=== PATIENT | male | born 1975 | race Caucasian/White ===

== ENCOUNTER 2017-06-03 02:13 | Inpatient (IN) | payer OTHER ==
[~2017-06-03] VITALS: Ht 177.8 cm; Wt 144.5 kg
[2017-06-03] MEDS ORDERED: TEST100V INJ (02:24)
[2017-06-03] MEDS ORDERED: ALBU0.63 NEB (02:24)
[2017-06-03 03:03] LABS: BASOPHILS # (AUTO) 0.02 x10^3/uL (0-0.1); BASOPHILS % (AUTO) 0 % (0-1); EOSINOPHILS # (AUTO) 0.16 x10^3/uL (0-0.4); EOSINOPHILS % (AUTO) 2 % (1-7); LYMPHOCYTES # (AUTO) 2.49 x10^3/uL (1-3.4); LYMPHOCYTES % (AUTO) 34 % (22-44); MD NO; MEAN CORPUSCULAR HEMOGLOBIN 30.8 pg (27.5-34.5); MEAN CORPUSCULAR HGB CONC 34.1 g/dL (33.2-36.2); MEAN CORPUSCULAR VOLUME 90.2 fL (81-97); MEAN PLATELET VOLUME 9.2 fL (7.4-10.4); MONOCYTES # (AUTO) 0.46 x10^3/uL (0.2-0.8); MONOCYTES % (AUTO) 6 % (2-9); NEUTROPHILS # (AUTO) 4.26 x10^3/uL (1.8-6.8); NEUTROPHILS % (AUTO) 58 % (42-75); PLATELET COUNT 230 x10^3/uL (130-400); RED BLOOD COUNT 4.63 x10^6/uL (4.38-5.82); RED CELL DISTRIBUTION WIDTH 13.9 % (9.4-14.8)
[2017-06-03 03:14] LABS: ALBUMIN 3.5 g/dL (3.4-5.0); ANION GAP 7 mmol/L (5-15); CALCIUM 8.5 mg/dL (8.5-10.1); CHLORIDE 111 mmol/L (98-107)
[2017-06-03 03:19] LABS: TROPONIN I < 0.015 ng/mL (0.000-0.045)
[2017-06-03] MEDS ORDERED: ONDANSETRON 2MG/ML, 2ML IVPush PRN ×2 (04:00→08:30)
[2017-06-03 04:44] VITALS: BP 144/97
[2017-06-03] MEDS ORDERED: NITROGLYCERIN 0.4 MG BOTTLE (25 TABS) SL PRN ×2 (08:00→09:00)
[2017-06-03] MEDS ORDERED: REGADENOSON 0.4 MG/5 ML SYRINGE ONE (08:29)
[2017-06-03] MEDS: HEPARIN 5,000 UNITS/ML, 1ML SQ SCH ×2 (08:30→16:13)
[2017-06-03] MEDS ORDERED: ACETAMINOPHEN 325 MG TABLET PO PRN (08:30)
[2017-06-03] MEDS ORDERED: ALBUTEROL SULFATE 2.5MG/0.5ML NPPB PRN (08:30)
[2017-06-03] MEDS ORDERED: ASPIRIN 325 MG TABLET EC PO SCH (08:30)
[2017-06-03] MEDS ORDERED: ONDANSETRON ODT 4 MG PO PRN (08:30)
[2017-06-03] MEDS ORDERED: BISACODYL 10 MG SUPP PR PRN (08:30)
[2017-06-03] MEDS ORDERED: DOCUSATE 100 MG CAPSULE PO PRN (08:30)
[2017-06-03] MEDS ORDERED: morphine SULFATE 10 MG/ML, 1ML IVPush PRN (08:30)
[2017-06-03] MEDS ORDERED: TESTOSTERONE CYPIONATE 200 MG/ML IM SCH ×3 (09:00→14:00)
[2017-06-03] MEDS ORDERED: TESTOSTERONE CYPIONATE INJ SCH (09:00)
[2017-06-03] MEDS ORDERED: NITROGLYCERIN 0.4 MG/SPRAY SL PRN (09:00)
[2017-06-03] MEDS ORDERED: ALBUTEROL SULFATE 2.5 MG/3 ML NEB PRN (09:00)
[2017-06-03 09:13] VITALS: BP 119/75
[2017-06-03] MEDS: SODIUM CHLORIDE 0.9% 1,000 ML IV SCH ×2 (09:23→16:29)
[2017-06-03 09:25] LABS: BASOPHILS # (AUTO) 0.02 x10^3/uL (0-0.1); BASOPHILS % (AUTO) 0 % (0-1); EOSINOPHILS # (AUTO) 0.14 x10^3/uL (0-0.4); EOSINOPHILS % (AUTO) 2 % (1-7); LYMPHOCYTES # (AUTO) 2.01 x10^3/uL (1-3.4); LYMPHOCYTES % (AUTO) 29 % (22-44); MD NO; MEAN CORPUSCULAR HEMOGLOBIN 30.5 pg (27.5-34.5); MEAN CORPUSCULAR HGB CONC 33.4 g/dL (33.2-36.2); MEAN CORPUSCULAR VOLUME 91.2 fL (81-97); MEAN PLATELET VOLUME 9.4 fL (7.4-10.4); MONOCYTES # (AUTO) 0.43 x10^3/uL (0.2-0.8); MONOCYTES % (AUTO) 6 % (2-9); NEUTROPHILS # (AUTO) 4.48 x10^3/uL (1.8-6.8); NEUTROPHILS % (AUTO) 63 % (42-75); PLATELET COUNT 226 x10^3/uL (130-400); RED BLOOD COUNT 4.72 x10^6/uL (4.38-5.82); RED CELL DISTRIBUTION WIDTH 14.2 % (9.4-14.8)
[2017-06-03 09:32] LABS: INTERNATIONAL NORMALIZED RATIO 1.02 (0.93-1.1); PROTHROMBIN TIME 10.6 Seconds (9.6-11.5)
[2017-06-03 09:34] LABS: ALBUMIN 3.5 g/dL (3.4-5.0); ANION GAP 7 mmol/L (5-15); CALCIUM 8.2 mg/dL (8.5-10.1); CHLORIDE 109 mmol/L (98-107)
[2017-06-03 09:37] LABS: ALANINE AMINOTRANSFERASE 56 U/L (12-78); ALKALINE PHOSPHATASE 81 U/L (45-117); BILIRUBIN,TOTAL 0.4 mg/dL (0.2-1.0); CHOLESTEROL, TOTAL 183 mg/dL (140-239); CREATININE 0.83 mg/dL (0.7-1.3); HDL CHOLESTEROL (DIRECT) 40 mg/dL (40-60); TOTAL PROTEIN 7.2 g/dL (6.4-8.2); TRIGLYCERIDES 128 mg/dL (50-200); VLDL CHOLESTEROL 26 mg/dL (0-25)
[2017-06-03 09:38] LABS: CHOL/HDL RATIO 4.6; HDL CHOL % 22 % (26-37); LDL CHOLESTEROL,CALCULATED 117 mg/dL (54-169); LDL/HDL RATIO 2.9 (0.5-3.0); TROPONIN I < 0.015 ng/mL (0.000-0.045)
[2017-06-03 09:55] LABS: MICROSCOPIC NOT IND
[2017-06-03 09:58] LABS: CULTURE INDICATED? NO
[2017-06-03 10:14] LABS: HEMOGLOBIN A1C 5.8 % (4.2-6.3)
[2017-06-03 10:35] LABS: AMPHETAMINE SCREEN, URINE Negative (Negative); BARBITURATE SCREEN, URINE Negative (Negative); BENZODIAZEPINE SCREEN, URINE Negative (Negative); CANNABINOID SCREEN, URINE Negative (Negative); COCAINE SCREEN, URINE Negative (Negative); METHADONE SCREEN, URINE Negative (Negative); OPIATE SCREEN, URINE Negative (Negative)
[2017-06-03 15:00] VITALS: BP 120/77
[2017-06-03 15:07] LABS: TROPONIN I < 0.015 ng/mL (0.000-0.045)
[2017-06-17] MEDS ORDERED: TESTOSTERONE CYPIONATE 200 MG/ML IM SCH (09:30)
== END 2017-06-03 20:33 | disposition home or self-care (01) | DRG 313 ==
LOC: ED 03:16 → EDIP 03:51 → 5SO 04:37
PROVIDERS: ADMIT Surgery; ATTEND Surgery
DX: R07.89 Other chest pain (principal); E66.01 Morbid (severe) obesity due to excess calories; Z68.42 Body mass index [BMI] 45.0-49.9, adult; G47.33 Obstructive sleep apnea (adult) (pediatric); G43.909 Migraine, unspecified, not intractable, without status migrainosus; J45.909 Unspecified asthma, uncomplicated; Z82.49 Family history of ischemic heart disease and other diseases of the circulatory system
CPT/HCPCS: 36415; 36600; 71046; 78452; 80048; 80053; 80061; 80307; 81003; 82040; 82803; 83036; 83735; 84100; 84270; 84402; 84403; 84443; 84484; 85025; 85610; 93005; 93017; 93306; 99285; J1071; J2785; A9502; C9898; G0479; J7030